=== PATIENT | male | born 1980 | race Caucasian/White ===

== ENCOUNTER 2021-09-07 00:17 | Emergency (ER) | payer OTHER ==
[2021-09-07] MEDS ORDERED: IBUPROFEN 400 MG TAB ONE (01:13)
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
[2021-09-07 03:45] VITALS: BP 135/92; TEMP 98.9; O2SAT 100
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
== END 2021-09-07 03:18 | disposition home or self-care (01) ==
LOC: ER 00:17
DX: S09.90XA Unspecified injury of head, initial encounter (principal); R51.9 Headache, unspecified; V49.49XA Driver injured in collision with other motor vehicles in traffic accident, initial encounter; Z88.0 Allergy status to penicillin
CPT/HCPCS: 70450; 99284